=== PATIENT | male | born 2000 | race Caucasian/White ===

== ENCOUNTER → 2018-11-05 | Outpatient (CLI) | payer BC | LOC: BMCIMAGING 13:56 | PROVIDERS: ATTEND Family Medicine | DX: S69.91XA Unspecified injury of right wrist, hand and finger(s), initial encounter (principal) ==

== ENCOUNTER → 2019-02-04 | Outpatient (CLI) | payer BC | LOC: BMCIMAGING 14:49 | PROVIDERS: ATTEND Emergency Medicine | DX: S89.92XA Unspecified injury of left lower leg, initial encounter (principal); Z53.9 Procedure and treatment not carried out, unspecified reason ==